=== PATIENT | male | born 1940 | race Caucasian/White ===

== ENCOUNTER 2016-09-01 08:56 | Day surgery (SDC) | payer MEDICARE, BC ==
[2016-09-01] MEDS ORDERED: Sodium Chloride 0.9% 1,000 ML IV SCH (09:00)
[2016-09-01] MEDS ORDERED: Sodium Chloride 0.9% 5 ML Syringe FLUSH PRN (09:00)
[2016-09-01] MEDS ORDERED: Propofol 200 MG/20 ML SDV ONE (09:45)
[2016-09-01] MEDS ORDERED: Midazolam 1 MG/ML 2 ML SDV ONE (09:45)
[2016-09-01] MEDS ORDERED: fentaNYL 100 MCG/2 ML SDV ONE (09:45)
[2016-09-01] MEDS ORDERED: Albuterol/Ipratropium 3.0-0.5 MG/3 ML Neb Soln NEB ONE (09:49)
[2016-09-01] MEDS ORDERED: Albuterol/Ipratropium 3.0-0.5 MG/3 ML Neb Soln ONE (09:56)
[2016-09-01] MEDS ORDERED: Propofol 200 MG/20 ML SDV IV ONE (10:54)
[2016-09-01] MEDS ORDERED: fentaNYL 100 MCG/2 ML SDV IV ONE (10:54)
[2016-09-01] MEDS ORDERED: Midazolam 1 MG/ML 2 ML SDV IV ONE (10:54)
[2016-09-01 12:21] VITALS: BP 137/79
--- NOTE | 2016-09-07 17:04 | PCM.OPNOTE ---
- General Post-Op/Procedure Note Date of Surgery/Procedure: 09/01/16 Operative Procedure(s): Colonoscopy. Pre Op Diagnosis: As above. Primary Surgeon: Elisa Chan Complications: None Condition: Good Free Text/Narrative:: Preoperative diagnosis: Rectal bleeding and screening colonoscopy Postoperative diagnosis: As above Procedure proposed: Colonoscopy Informed consent is obtained from the patient regarding this procedure. All possible consultations were discussed. These include the possibility of perforation and in the event of perforation etc. In spite of these complications, the patient decided to proceed. She was taken to the operating room and kept in the supine position. A satisfactory images anesthesia was administered by the nurse steffen house supervisor. Instrument used was Olympus video colonoscope. Continuous oximetry, EKG monitoring and intermittent respiratory and blood pressure monitoring were performed throughout the procedure. The Olympus video colonoscopy was injected into the rectum and advanced into the ileocecal junction. On the way back the mucosa was carefully examined. There was no evidence of obstruction, polyps, malignancy, AV malformations or angiodysplasia. Retroflexion technique was employed in the rectum. No additional findings were discovered. The scope was gradually withdrawn. The patient tolerated procedure well without any complication. He was transferred to the recovery room in excellent condition.
== END 2016-09-01 13:26 | disposition home or self-care (01) ==
LOC: KA.SDS 08:56
PROVIDERS: ATTEND Family Medicine
DX: Z12.11 Encounter for screening for malignant neoplasm of colon (principal); F41.9 Anxiety disorder, unspecified; E78.2 Mixed hyperlipidemia; F33.40 Major depressive disorder, recurrent, in remission, unspecified; H40.059 Ocular hypertension, unspecified eye; N17.9 Acute kidney failure, unspecified; I10 Essential (primary) hypertension; Z79.84 Long term (current) use of oral hypoglycemic drugs; Z79.899 Other long term (current) drug therapy
CPT/HCPCS: 00810; 82962; G0121; J2250; J2704; J3010; J7030

== ENCOUNTER 2019-03-07 07:57 | Day surgery (SDC) | payer MEDICARE, OTHER ==
[2019-03-07] MEDS ORDERED: Sodium Chloride 0.9% 1,000 ML IV SCH (08:00)
[2019-03-07] MEDS ORDERED: Sodium Chloride 0.9% 10 ML Syringe FLUSH PRN (08:00)
[2019-03-07] MEDS ORDERED: EPINEPHrine 1:10,000 1 MG/10 ML Syringe ONE (08:54)
[2019-03-07] MEDS ORDERED: Propofol 200 MG/20 ML SDV ONE (09:02)
[2019-03-07] MEDS ORDERED: Midazolam 1 MG/ML 2 ML SDV ONE (09:02)
[2019-03-07] MEDS ORDERED: Propofol 200 MG/20 ML SDV IV ONE (09:20)
[2019-03-07] MEDS ORDERED: Midazolam 1 MG/ML 2 ML SDV IV ONE (09:20)
--- NOTE | 2019-03-07 10:26 | PCM.OPNOTE ---
- General Post-Op/Procedure Note Date of Surgery/Procedure: 03/07/19 Operative Procedure(s): Colonoscopy. Findings: Normal colonoscopy. Pre Op Diagnosis: Screening colonoscopy. Status post small bowel resection previously. Post-Op Diagnosis: As above. Normal colonoscopy. Anesthesia Technique: MAC Primary Surgeon: Elisa Chan Condition: Good Free Text/Narrative:: INFORMED CONSENT: Patient is here today for elective colonoscopy. All aspects of this procedure have been discussed with the patient. All possible complications also, including possibility of perforation, infection, pain, bleeding and unknown complications. In the event of perforation patient may need to have abdominal exploration, colon resection, colostomy and even was discussed. Anesthetic complications were handled by anesthesia department. The patient understands fully well. Patient did not have any further questions for me at the end of my interview. The patient wishes for me to proceed. PREOPERATIVE DIAGNOSIS/INDICATIONS: [Screening colonoscopy] POSTOPERATIVE DIAGNOSIS: [Normal colonoscopy] INSTRUMENT USED: Olympus videocolonoscope. ASA CLASSIFICATION: [2] ANESTHESIA: Continuous EKG, oximetry and intermittent blood pressure and respiratory monitoring were performed throughout the procedure. IV Versed and Fentanyl were administered. PROCEDURE PERFORMED: Colonoscopy POSITIONS OF PATIENT: Left lateral. RECTUM: Normal. SIGMOID COLON: Normal. DESCENDING COLON: Normal. SPLENIC FLEXURE: Normal. TRANSVERSE COLON: Normal. HEPATIC FLEXURE: Normal. ASCENDING COLON: Normal. CECUM: Normal. ILEOCECAL VALVE: Normal. BIOPSY: None. TOLERANCE: Excellent. COMPLICATIONS: None.
[2019-03-07 10:48] VITALS: BP 122/66; PULSE 61
== END 2019-03-07 11:10 | disposition home or self-care (01) ==
LOC: KA.SDS 07:57
PROVIDERS: ATTEND Family Medicine
DX: Z12.11 Encounter for screening for malignant neoplasm of colon (principal); K91.2 Postsurgical malabsorption, not elsewhere classified; I10 Essential (primary) hypertension; E78.2 Mixed hyperlipidemia; E11.9 Type 2 diabetes mellitus without complications; E29.1 Testicular hypofunction; R91.1 Solitary pulmonary nodule; N40.1 Benign prostatic hyperplasia with lower urinary tract symptoms; R35.0 Frequency of micturition; F41.9 Anxiety disorder, unspecified; F33.40 Major depressive disorder, recurrent, in remission, unspecified; H25.13 Age-related nuclear cataract, bilateral; M13.819 Other specified arthritis, unspecified shoulder; Z79.51 Long term (current) use of inhaled steroids; Z79.899 Other long term (current) drug therapy
CPT/HCPCS: 00812; 82962; J2250; J2704; J7030

== ENCOUNTER 2021-04-15 21:04 | Emergency (ER) | payer MEDICARE ==
[2021-04-15] MEDS ORDERED: Sodium Chloride 0.9% 10 ML Syringe FLUSH PRN (21:33)
[2021-04-15] MEDS ORDERED: methylPREDNISolone Sodium Succinate 125 MG/2 ML SDV IM ONE (21:51)
[2021-04-15] MEDS ORDERED: Albuterol/Ipratropium 3.0-0.5 MG/3 ML Neb Soln NEB ONE (21:51)
[2021-04-15 22:02] LABS: ANION GAP 17.1 mmol/L (5-15)
[2021-04-15 22:20] VITALS: BP 127/73; PULSE 93
[2021-04-15] MEDS ORDERED: Albuterol 0.083% 2.5 MG/3 ML Neb Soln NEB ONE (22:43)
[2021-04-15] MEDS ORDERED: Albuterol 8 GM Inhaler INH ONE (23:00)
== END 2021-04-15 23:12 | disposition home or self-care (01) ==
LOC: KA.ED 21:04
DX: J20.9 Acute bronchitis, unspecified (principal); I10 Essential (primary) hypertension; Z79.899 Other long term (current) drug therapy; Z20.822 Contact with and (suspected) exposure to COVID-19
CPT/HCPCS: 36415; 71046; 80053; 83605; 85025; 94640; 96372; 99284; 99284-25; A9270-GY; J2930; J7620-GY; U0002

== ENCOUNTER 2022-10-31 20:05 | Emergency (ER) | payer MEDICARE ==
[2022-10-31 20:54] LABS: BASOPHILS ABSOLUTE AUTO 0.06 10^3/uL (0.00-0.10); BASOPHILS PERCENT AUTO 0.5 % (0.0-1.0); EOSINOPHILS ABSOLUTE AUTO 0.03 10^3/uL (0.10-0.30); EOSINOPHILS PERCENT AUTO 0.2 % (1.0-3.0); HEMATOCRIT 52.9 % (40.0-52.0); HEMOGLOBIN 16.1 g/dL (13.0-17.0); IMMATURE GRAN ABSOLUTE AUTO 0.03 10^3/uL (0.00-0.50); IMMATURE GRAN PERCENT AUTO 0.2 % (0.0-5.0); LYMPHOCYTES ABSOLUTE AUTO 0.81 10^3/uL (1.00-4.00); LYMPHOCYTES PERCENT AUTO 6.5 % (20.0-40.0); MEAN CORPUSCULAR HEMOGLOBIN 27.3 pg (27.0-31.0); MEAN CORPUSCULAR HGB CONC 30.4 g/dL (32.0-36.0); MEAN CORPUSCULAR VOLUME 89.7 fL (82.0-92.0); MEAN PLATELET VOLUME 10.2 fL (7.4-10.4); MONOCYTES ABSOLUTE AUTO 1.23 10^3/uL (0.10-0.80); MONOCYTES PERCENT AUTO 9.9 % (2.0-8.0); NEUTROPHILS ABSOLUTE AUTO 10.24 10^3/uL (2.50-7.00); NEUTROPHILS PERCENT AUTO 82.7 % (50.0-70.0); PLATELET COUNT,PLT 268 10^3/uL (150-400); RED CELL DISTRIBUTION WIDTH 14.4 % (11.5-14.5)
[2022-10-31 21:07] LABS: ALBUMIN 2.68 g/dL (3.40-5.00); ANION GAP 12.6 mmol/L (5-15); BILIRUBIN TOTAL 0.7 mg/dL (0.2-1.0); CALCIUM 8.9 mg/dL (8.7-10.3); CARBON DIOXIDE,CO2 30.9 mmol/L (21.0-32.0); CREATININE 1.68 mg/dL (0.51-1.17); EST CRCL DRUG DOSING (CG) 35.07 mL/min; POTASSIUM,K 5.5 mmol/L (3.5-5.1); PROTEIN TOTAL,TP 7.1 g/dL (6.4-8.2)
[2022-10-31 21:36] VITALS: BP 164/114; PULSE 117
== END 2022-10-31 22:00 ==
LOC: KA.ED 20:05
DX: R09.02 Hypoxemia (principal); R06.03 Acute respiratory distress; J90 Pleural effusion, not elsewhere classified; I10 Essential (primary) hypertension; Z79.82 Long term (current) use of aspirin; Z79.899 Other long term (current) drug therapy; Z99.81 Dependence on supplemental oxygen
CPT/HCPCS: 36415; 71045; 80053; 83605; 83880; 85025; 99284; 99285

== ENCOUNTER 2023-05-12 18:55 | Emergency (ER) | payer MEDICARE ==
[2023-05-12] MEDS ORDERED: Sodium Chloride 0.9% 10 ML Syringe FLUSH PRN (19:23)
[2023-05-12 19:37] LABS: HEMATOCRIT 33.1 % (40.0-52.0); HEMOGLOBIN 10.7 g/dL (13.0-17.0); MEAN CORPUSCULAR HEMOGLOBIN 29.5 pg (27.0-31.0); MEAN CORPUSCULAR HGB CONC 32.3 g/dL (32.0-36.0); MEAN CORPUSCULAR VOLUME 91.2 fL (82.0-92.0); MEAN PLATELET VOLUME 9.1 fL (7.4-10.4); PLATELET COUNT,PLT 508 10^3/uL (150-400); RED BLOOD CELL COUNT 3.63 10^6/uL (4.50-6.00); RED CELL DISTRIBUTION WIDTH 15.5 % (11.5-14.5); WHITE BLOOD CELL COUNT,WBC 9.28 10^3/uL (5.00-10.00)
[2023-05-12] MEDS: Loperamide 2 MG Cap PO PRN (19:41)
[2023-05-12 19:52] LABS: BASOPHILS PERCENT MAN 1 % (0-1); EOSINOPHILS PERCENT MAN 5 % (1-3); MONOCYTES PERCENT MAN 10 % (2-8); SEG NEUTROPHILS PERCENT MAN 61 % (50-70); SLIDE REVIEW YES
[2023-05-12 19:53] LABS: ALANINE AMINOTRANSFERASE,ALT 45 U/L (14-63); ALKALINE PHOSPHATASE 81 U/L (46-116); ANION GAP 15.7 mmol/L (5-15); ASPARTATE AMNIOTRANSFERASE,AST 38 U/L (15-37); BAND PERCENT MAN 10 % (4-12); BILIRUBIN TOTAL 0.2 mg/dL (0.2-1.0); BLOOD UREA NITROGEN,BUN 15 mg/dL (7-18); CALCIUM 8.1 mg/dL (8.7-10.3); CARBON DIOXIDE,CO2 23.7 mmol/L (21.0-32.0); CHLORIDE,CL 108 mmol/L (98-107); CREATININE 1.69 mg/dL (0.51-1.17); ESTIMATED GFR 40 mL/min (>=60); GLUCOSE RANDOM 111 mg/dL (70-140); LYMPHOCYTES PERCENT MAN 13 % (20-40); POTASSIUM,K 4.4 mmol/L (3.5-5.1); PROTEIN TOTAL,TP 5.8 g/dL (6.4-8.2); SODIUM,NA 143 mmol/L (136-145)
[2023-05-12 19:58] LABS: LACTIC ACID 1.7 mmol/L (0.4-2.0)
[2023-05-12] MEDS: Sodium Chloride 0.9% 1,000 ML IV ONE (19:58)
[2023-05-12 20:06] VITALS: BP 142/83; PULSE 98
== END 2023-05-12 20:40 | disposition home or self-care (01) ==
LOC: KA.ED 18:55
DX: T80.90XA Unspecified complication following infusion and therapeutic injection, initial encounter (principal); K52.1 Toxic gastroenteritis and colitis; T45.1X5A Adverse effect of antineoplastic and immunosuppressive drugs, initial encounter; I10 Essential (primary) hypertension; Z79.899 Other long term (current) drug therapy; Z79.82 Long term (current) use of aspirin; Z90.49 Acquired absence of other specified parts of digestive tract
CPT/HCPCS: 71046; 80053; 83605; 85025; 87040; 99283; 99284; A9270-GY; J1642; J7030

== ENCOUNTER 2024-05-01 16:51 | Emergency (ER) | payer MEDICARE, OTHER ==
[2024-05-01] MEDS: Sodium Chloride 0.9% 1,000 ML IV ONE (17:24)
[2024-05-01] MEDS ORDERED: Sodium Chloride 0.9% 50 ML IV ONE (17:38)
[2024-05-01] MEDS ORDERED: Sodium Chloride 0.9% 100 ML IV ONE (17:38)
[2024-05-01] MEDS: Iopamidol 755 Mg/ML 100 ML Bottle IV ONE (17:43)
[2024-05-01] MEDS: Albuterol/Ipratropium 3.0-0.5 MG/3 ML Neb Soln NEB ONE (19:08)
[2024-05-01 19:48] VITALS: BP 120/66; PULSE 77
== END 2024-05-01 20:00 | disposition home or self-care (01) ==
LOC: KA.ED 16:51
DX: I10 Essential (primary) hypertension (principal); J44.9 Chronic obstructive pulmonary disease, unspecified; Z90.49 Acquired absence of other specified parts of digestive tract; Z87.891 Personal history of nicotine dependence; Z79.51 Long term (current) use of inhaled steroids; Z79.82 Long term (current) use of aspirin; Z79.899 Other long term (current) drug therapy
CPT/HCPCS: 36415; 71275; 83605; 84484; 85730; 94640; 96360; 99284; 99285-25; A9270-GY; J7030; Q9967